=== PATIENT | female | born 1950 | race Hispanic/Latino ===

== ENCOUNTER 2017-05-20 13:10 | Day surgery (SDC) | payer MEDICARE, MEDICAID ==
[2017-05-13 08:22] VITALS: BMI 38.1
--- NOTE | 2017-05-20 14:42 | CP.PCM.PN ---
Subjective - Date & Time of Evaluation Date of Evaluation: 05/20/17 Time of Evaluation: 14:39 - Subjective Subjective: Pre-op note: Dr. Cruz 66 year old female patient with PMHx of DM, CHF, HTN, CAD s/p stent placement was seen and evaluated in [facility] prior to right foot surgery. Patient reports that she has a bone infection on the right foot and will be getting the bone cut today. Patient is AAOx3 and is in NAD. Patient reports that she has been NPO since midnight yesterday. Denies of having any adverse reactions to anesthesia. Denies of having any recent F/N/V/C/SOB/CP/headache/diarrhea or dizziness. Denies of any other pedal complains now. 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) SocialHx: Denies tobacco, alcohol, illicit drug use Allergies: N.K.D.A Objective - Vital Signs/Intake and Output Vital Signs (last 24 hours): Temp Pulse Resp BP Pulse Ox 97.7 F 68 20 107/47 L 98 05/20/17 13:54 05/20/17 13:54 05/20/17 13:54 05/20/17 13:54 05/20/17 13:54 - Constitutional Appears: Well, Non-toxic, No Acute Distress - Extremities Exam Additional comments: Dressing on the right foot is clean, dry and intact - Neurological Exam Neurological Exam: Alert, Awake, Oriented x3 - Psychiatric Exam Psychiatric exam: Normal Affect, Normal Mood Assessment and Plan - Assessment and Plan (Free Text) Assessment: 66 year old female patient with PMHx of DM, CHF, HTN, CAD s/p stent placement was evaluated in [facility] prior to right foot surgery. Plan: Pt was seen and examined in [facility] Pt NPO status was confirmed All pre-op testing and clearance in chart Pt has exhausted all conservative treatment at this time and is opting for surgical intervention Pt was explained procedure and post-operative course All pt's questions were answered to satisfaction No guarantees were made Pt understands all risks, benefits and complications of procedure Pt will follow-up with Dr. Cruz within 1 week of surgery
[2017-05-20] MEDS ORDERED: Bupivacaine 0.5% Inj(30mL) IJ ONE (14:50)
[2017-05-20] MEDS ORDERED: ceFAZolin 2 GM in Sodium Chloride 0.9% 100 ML IVPB ONE (14:50)
[2017-05-20] MEDS ORDERED: Lidocaine 1% Inj (20ml) IJ ONE ×2 (14:50→16:50)
--- NOTE | 2017-05-20 14:50 | CP.SDSHP ---
Same Day Surgery H & P - History Proposed Procedure: Right foot partial 5th ray amputation Pre-Op Diagnosis: OM of the right 5th ray - Allergies Allergies: Allergies No Known Allergies Allergy (Verified 12/27/16 15:02) - Physical Exam Vital Signs: Vital Signs 05/20/17 13:54 Temperature 97.7 F Pulse Rate 68 Respiratory 20 Rate Blood Pressure 107/47 L O2 Sat by Pulse 98 Oximetry - {Optional Preform as Required} Integument: Other Ortho: Other - Date & Time Date: 05/20/17 Time: 14:50 Short Stay Discharge - Short Stay Discharge Admitting Diagnosis/Reason for Visit: E11.62/M86.171 Disposition: HOME/ ROUTINE Referrals: Arsen Best MD [Primary Care Provider] - Additional Instructions (Diet, Activity): -Patient in good/stable condition for discharge home -Pt to resume medications per medical reconciliation -Resume regular diet Please keep dressing clean, dry, & intact to surgical site -Use plastic bag over bandage for showering -Wear post op shoe at all times when ambulating -Call clinic if you see signs of infection (redness, swelling, malodor) -Please make an appointment to see Dr. Cruz in office/clinic within 1 week for post-op check Progress Note/Discharge Note with Instructions: - Patient evaluated bedside in recovery s/p surgical procedure. - After surgical procedure patient in NAD - (+) Void, (+) Appetite - Capillary refill time <3s and NVSI intact. - Patient denies complaints at this time - Post operative instructions and plan of care explained to patient at length. - Pt. acknowledges understanding. - Patient stable for DC per podiatric surgery
[2017-05-20] MEDS ORDERED: Sodium Chloride 0.9% 1,000 ML IV SCH ×2 (15:00→17:45)
[2017-05-20] MEDS ORDERED: Bupivacaine 0.5% Inj(30mL) ONE (16:04)
[2017-05-20] MEDS ORDERED: Lidocaine 1% Inj (20ml) ONE (16:04)
[2017-05-20] MEDS ORDERED: Midazolam 2 MG/2 ML VIAL ONE (16:26)
[2017-05-20] MEDS ORDERED: Propofol 10 mg/ml Inj (20 ML) ONE (16:26)
[2017-05-20] MEDS ORDERED: Sodium Chloride 0.9% 1,000 ML IV ONE (16:30)
[2017-05-20] MEDS ORDERED: Bupivacaine HCl 0.5% PF (10 ml) Inj IJ ONE (16:50)
--- NOTE | 2017-05-20 17:32 | PCM.SURG1 ---
Surgeon's Initial Post Op Note - Surgeon's Notes Surgeon: Dr. Brenden Cruz DPM Paint Laboratory Technician: Dr. Milan De La Paz DPM PGY-1 Type of Anesthesia: IV Sedation, Local Anesthesia Administered By: Dr. 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 M: 3-0 vicryl, 3-0 prolene. I: 20 cc of 1: 1 1% lidocain plain : 0.5% marcain plain Post-Operative Diagnosis: Same Operation Performed: Right foot 5th metatarsal head resection with removal of all non-viable soft tissue Specimen/Specimens Removed: 5th metatarsal head Estimated Blood Loss: EBL {In ML}: 10 Blood Products Given: N/A Drains Used: No Drains Post-Op Condition: Good Date of Surgery/Procedure: 05/20/17 Time of Surgery/Procedure: 17:32
[2017-05-20] MEDS ORDERED: Oxycodone/Acetaminophen 5/325 mg Tab PO PRN ×2 (17:34)
[2017-05-20 17:53] VITALS: RESP 18
[2017-05-20 18:45] VITALS: TEMP 98
[2017-05-20 20:04] VITALS: BP 140/53; PULSE 71; O2SAT 98
--- NOTE | 2017-05-21 10:54 | RAD ---
PROCEDURE: Right Foot Radiographs. HISTORY: s/p right foot surgery COMPARISON: None. FINDINGS: BONES: Status post osteotomy distal 3rd 5th metatarsal. No acute fracture. No lytic or blastic osseous lesion. No periosteal reaction or osseous erosion. Plantar calcaneal spur noted. JOINTS: Normal. SOFT TISSUES: Normal. OTHER FINDINGS: None. IMPRESSION: Osteotomy distal 5th metatarsal. Otherwise unremarkable.
--- NOTE | 2017-05-21 11:43 | OP ---
PROCEDURE DATE: 05/20/2017 PREOPERATIVE DIAGNOSIS: Osteomyelitis of right fifth metatarsal head. POSTOPERATIVE DIAGNOSIS: Osteomyelitis of right fifth metatarsal head. NAME OF PROCEDURE: Resection of infected right fifth metatarsal head. SURGEON: Brenden Black DPM MACHINE II TRIMMER: Milan De La Paz DPM, PGY-1 ANESTHESIOLOGIST: Benitez Hightower MD TYPE OF ANESTHESIA: IV sedation with local. INDICATIONS: The patient is a 66-year-old female with the above diagnosis. The patient has exhausted all conservative treatment at this time and now requires surgical intervention. The patient signed the consent after careful explanation of risks, benefits, complications, and alternatives for surgical procedure. No guarantees were given nor implied. N.p.o. status was confirmed prior to taking the patient to the OR. PREPARATION: The patient was brought into the operating room and placed on the operating room table in a supine position. A time-out was performed for identification of the correct patient and procedure. After induction of IV sedation, the patient received a total of 20 mL of 1:1 mixture of 0.5% Marcaine plain, 1% lidocaine plain in a local block fashion to the lateral right foot just proximal to the fifth ray. The right lower extremity was then prepped and draped in a normal sterile manner and the procedure began. No tourniquet was used during the procedure. PROCEDURE 1: Attention was then turned to the lateral right digit where a longitudinal incision was made just lateral to the extensor digitorum longus attaching to the fifth digit. Dissection was made down to the level of bone with care taken to ensure that all major neurovascular tendons and ligamentous structures were kept intact. Once, dissection was made down to the level of bone, the periosteum was dissected off the bony surface using a freer elevator, thereby exposing the fifth metatarsophalangeal joint. A fresh # 15 blade was then used to dissect all soft tissue from the fifth metatarsophalangeal joint thereby completely freeing the fifth metatarsal head from the fifth proximal phalanx. A micro sagittal saw on power was then utilized to resect all exposed fifth metatarsal head. The fifth metatarsal head was then excised from the field using a towel clamp and fresh #15 blade. The metatarsal head was sent to pathology for examination. The cervical site was then flushed with copious amounts of normal sterile saline and a layered closure was performed using 3-0 Vicryl for deep sutures and 3-0 Prolene for superficial sutures. Attention was then turned to the plantar aspect of the right foot at the level of the first metatarsophalangeal joint where a nonhealing ulceration was noted with mostly granular wound base. The skin surrounding the nonhealing ulceration was hyperkeratotic in nature and a fresh #15 blade was used to the debride the hyperkeratotic tissue down to an appropriate level without incident. The foot was then cleansed with normal saline, dried and the wound was dressed with Xeroform, 4 x 4 gauze, Kerlix and Coban. POSTOPERATIVE CONDITION: The patient tolerated the anesthesia and procedure well and was escorted to the recovery room with vital signs stable and neurovascular status intact to right lower extremity. The patient is to remain weightbearing as tolerated to the right foot in a surgical shoe and is to keep the dressings clean, dry and intact at all times. The patient is to follow up with Dr. Black in his private office in 1 week's time to ensure that there are no signs of infection and the healing is occurring in appropriate and adequate manner. Milan De La Paz DPM Brenden Black DPM MTDSteve
== END 2017-05-20 20:15 | disposition home or self-care (01) ==
LOC: H.OPSURG 13:10
PROVIDERS: ATTEND Podiatrist Foot & Ankle Surgery
DX: E11.621 Type 2 diabetes mellitus with foot ulcer (principal); M86.171 Other acute osteomyelitis, right ankle and foot; I11.0 Hypertensive heart disease with heart failure; I25.10 Atherosclerotic heart disease of native coronary artery without angina pectoris; I50.9 Heart failure, unspecified
CPT/HCPCS: 28113; 73630; 82948; 88304; 97116; 97161; G8978; G8979; G8980; J0690; J2001; J2250; J2704; J3010; J7040

== ENCOUNTER 2018-06-19 15:34 | Emergency (ER) | payer OTHER ==
[2018-06-19 15:40] VITALS: O2SAT 98
[2018-06-19 15:41] VITALS: BMI 38.5
--- NOTE | 2018-06-19 16:30 | ED PDOC ---
Lower Extremity Pain/Injury Time Seen by Provider: 06/19/18 15:54 Chief Complaint (Nursing): Lower Extremity Problem/Injury Chief Complaint (Provider): Right foot pain History Per: Patient History/Exam Limitations: no limitations Current Symptoms Are (Timing): Still Present Additional Complaint(s): 67 year old female presents to the ED with right foot pain. Patient currently has an infection of her right foot's 1st and 3rd digits and was admitted to the hospital for this earlier this week. She was discharged on June 15. Patient was seen by her doctor today who told her she needed to go to the ER for further evaluation for possible persistent infection. Patient states she has been taking her antibiotics as prescribed. She also reports generalized weakness and pain her foot since discharge. Denies fever, any foot injury, or trauma. PMD: Dr. Lisette Post Past Medical History Reviewed: Historical Data, Nursing Documentation, Vital Signs Vital Signs: Last Vital Signs Temp 97.6 F 06/19/18 15:38 Pulse 66 06/19/18 15:38 Resp 20 06/19/18 15:38 BP 125/52 L 06/19/18 15:38 Pulse Ox 98 06/19/18 15:38 - Medical History PMH: Anemia, CAD, CHF, Diabetes, HTN, Hypercholesterolemia Denies: Chronic Kidney Disease - Surgical History Surgical History: Coronary Stent (2017) - Family History Family History: States: No Known Family Hx - Social History Current smoker - smoking cessation education provided: No Alcohol: None Drugs: Denies - Immunization History Hx Tetanus Toxoid Vaccination: No Hx Influenza Vaccination: No Hx Pneumococcal Vaccination: No - Home Medications Home Medications: Ambulatory Orders Medication Instructions Recorded Furosemide [Lasix] 20 mg PO DAILY 09/27/14 Insulin Glargine,Hum.rec.anlog 25 unit [facility] 09/27/14 [Lantus] Metformin HCl 1,000 mg PO BID 09/27/14 Aspirin [Aspirin Chewable] 81 mg PO DAILY #30 ctb 06/11/16 Clopidogrel [Plavix] 75 mg PO DAILY #30 tab 06/11/16 Amoxicillin/Clavulanate [Augmentin 1 tab PO BID #14 tab 06/15/18 875 MG-125 MG] Losartan [Cozaar] 50 mg PO DAILY #30 tab 06/15/18 Metoprolol Succinate XL [Toprol XL] 50 mg PO DAILY #30 tab 06/15/18 Saccharomyces Boulardi [Florastor] 250 mg PO BID #14 cap 06/15/18 Atorvastatin [Lipitor] 40 mg PO HS 06/19/18 Cholecalciferol [Vitamin D 1000 IU] 1,000 unit PO DAILY 06/19/18 Multivitamin [Multi-Vitamin Daily] 1 tab PO DAILY 06/19/18 Omeprazole 20 mg PO DAILY 06/19/18 - Allergies Allergies/Adverse Reactions: Allergies Allergy/AdvReac Type Severity Reaction Status Date / Time No Known Allergies Allergy Verified 06/12/18 19:03 Review of Systems ROS Statement: Except As Marked, All Systems Reviewed And Found Negative (as per HPI otherwise negative) Constitutional: Positive for: Weakness (generalized). Negative for: Fever Musculoskeletal: Positive for: Foot Pain (right). Negative for: Other (Trauma or foot injury) Physical Exam - Reviewed Nursing Documentation Reviewed: Yes Vital Signs Reviewed: Yes - Physical Exam Appears: Positive for: No Acute Distress Head Exam: Positive for: ATRAUMATIC, NORMOCEPHALIC Skin: Positive for: Warm, Dry Eye Exam: Positive for: EOMI, PERRL Neck: Positive for: Painless ROM, Supple Cardiovascular/Chest: Positive for: Regular Rate, Rhythm. Negative for: Murmur Respiratory: Positive for: Normal Breath Sounds. Negative for: Respiratory Distress Gastrointestinal/Abdominal: Positive for: Soft. Negative for: Tenderness Back: Positive for: Normal Inspection. Negative for: Decreased ROM Extremity: Positive for: Tenderness (mild tenderness to palpation at 1st and 3rd digits of right foot), Swelling (Mild edema at the forefoot and subtle erythema of the forefoot), Other (Right foot: 1st digit - ulceration at the distal phalanx that is about 0.5cm in depth and 1cm in diamter with red base and yellow eschar. 3rd digit - ulceration that is 3/4 cm in diameter at the distal phalanx with red base and yellow eschar. ) Lymphatic: Negative for: Adenopathy Neurological/Psych: Positive for: Awake. Negative for: Motor/Sensory Deficits - Laboratory Results Result Diagrams: 06/19/18 16:49 06/19/18 16:49 - ECG O2 Sat by Pulse Oximetry: 98 (RA) Pulse Ox Interpretation: Normal Medical Decision Making Medical Decision Making: Initial Impression: infection of multiple toes in the right foot Initial Plan: --CMP --CRP stat --Lact acid stat --CBC --Erythrocyte stat --PTT --Prothrombin time --Chest X-ray --Blood culture --Right foot X-ray ------- Scribe Attestation: Documented by Sebastian León acting as a scribe for Marsha Juárez MD. Provider Scribe Attestation: All medical record entries made by the Scribe were at my direction and personally dictated by me. I have reviewed the chart and agree that the record accurately reflects my personal performance of the history, physical exam, medical decision making, and the department course for this patient. I have also personally directed, reviewed, and agree with the discharge instructions and dis position. Time: 165 PROCEDURE: Right Foot Radiographs. HISTORY: RIGHT 3rd and 5th toe infections COMPARISON: 05/20/2017 TECHNIQUE: 3 views obtained. FINDINGS: BONES: Status post osteotomy distal aspect 5th metatarsal. Status post amputation of 4th digit at the MTP articulation. No acute fracture. No osseous erosion or periosteal reaction. Plantar calcaneal spur noted. JOINTS: Normal. SOFT TISSUES: Vascular calcifications OTHER FINDINGS: None. IMPRESSION: Status post amputation 4th digit at MTP articulation. Osteotomy distal 5th metatarsal. No plain radiographic evidence of osteomyeliti PROCEDURE: CHEST RADIOGRAPH, 1 VIEW HISTORY: infection COMPARISON: 05/13/2017 FINDINGS: LUNGS: Evaluation limited by oblique positioning. No infiltrate. PLEURA: No pneumothorax or pleural fluid seen. CARDIOVASCULAR: No aortic atherosclerotic calcification present. Normal. OSSEOUS STRUCTURES: No significant abnormalities. VISUALIZED UPPER ABDOMEN: Normal. OTHER FINDINGS: None. IMPRESSION: No active disease. Time: 2029 -- Podiatry resident evaluated patient in the ER and discussed the case with Dr. Bajwa who states patient can be discharged home with instructions to continue antibiotics as prescribed and attend follow up appointment with Dr. Bajwa as scheduled next Friday. Discussed with patient plan of care and is eager to be discharged. Scribe Attestation: Documented by Kylee Goode, acting as a scribe for Marsha Juárez MD. Provider Scribe Attestation: All medical record entries made by the Scribe were at my direction and personally dictated by me. I have reviewed the chart and agree that the record accurately reflects my personal performance of the history, physical exam, medical decision making, and the department course for this patient. I have also personally directed, reviewed, and agree with the discharge instructions and disposition. Disposition - Clinical Impression Clinical Impression: Open toe wound - Disposition Referrals: Brenden Bajwa DPM [Staff Provider] - (FOLLOWUP SCHEDULE WITH DR BAJWA) Disposition: Routine/Home Disposition Time: 20:00 Condition: STABLE Additional Instructions: CONTINUE YOUR MEDICATIONS PRESCRIBED. MAKE SURE YOU COMPLETE YOUR FULL COURSE OF ANTIBIOTICS. Instructions: Diabetic Foot Ulcer (DC)
[2018-06-19 16:54] LABS: BASO % 0.7 % (0.0-2.0); EOS # 0.1 K/uL (0.0-0.7); EOS % 1.1 % (0.0-4.0); HEMOGLOBIN 11.6 g/dL (12.0-16.0); LYMPH # 1.6 K/uL (1.0-4.3); MEAN CELL VOLUME 80.1 fl (81.0-99.0); MEAN CORPUSCULAR HEMOGLOBIN 26.2 pg (27.0-31.0); MEAN CORPUSCULAR HGB CONC 32.8 g/dL (33.0-37.0); MEAN PLATELET VOLUME 8.4 fl (7.2-11.7); MONO # 0.6 K/uL (0.0-0.8); MONO % 9.3 % (0.0-10.0); NEUT # 4.6 K/uL (1.8-7.0); NEUT % 65.9 % (50.0-75.0); NRBC % 0.1 % (0.0-0.0); RBC 4.41 Mil/uL (3.80-5.20); RED CELL DISTRIBUTION WIDTH 14.1 % (11.5-14.5); WHITE BLOOD COUNT 6.9 K/uL (4.8-10.8)
--- NOTE | 2018-06-19 16:57 | CP.PCM.CON ---
History of Present Illness - History of Present Illness History of Present Illness: Podiatry Consult Note: Dr. John 67 y/o female with PMHx of CAD, CHF, DM, HTN, HLD seen and evaluated for right hallux and 3rd digit ulceration. Patient is well known to Dr. John and follows with him weekly in his office for wound care. She states that she went to her primary care doctor who saw her ulceration and sent her to the hospital. She denies nausea/vomiting/fever/shortness of breath/chest pain. PMHx: HTN, DM2, HLD, CAD s/p stents x3 PSHx: cardiac stent x3 placement 2014, amputation of L 4th digit 2014, amputatio n of R 4th digit 2017 SHx: Denies tobacco use All: NKDA Review of Systems - Constitutional Constitutional: As Per HPI Past Patient History - Infectious Disease Hx of Infectious Diseases: None - Past Medical History & Family History Past Medical History?: Yes - Past Social History Alcohol: None Drugs: Denies - CARDIAC Hx Congestive Heart Failure: Yes Hx Hypercholesterolemia: Yes Hx Hypertension: Yes - PULMONARY Hx Respiratory Disorders: No - NEUROLOGICAL Hx Neurological Disorder: No - HEENT Hx HEENT Problems: Yes Hx Cataracts: Yes (fabian) Hx Glaucoma: Yes - RENAL Hx Chronic Kidney Disease: No - ENDOCRINE/METABOLIC Hx Diabetes Mellitus Type 2: Yes - HEMATOLOGICAL/ONCOLOGICAL Hx Anemia: Yes - INTEGUMENTARY Hx Dermatological Problems: Yes Other/Comment: left 4TH toe amputation - MUSCULOSKELETAL/RHEUMATOLOGICAL Hx Musculoskeletal Disorders: No Hx Falls: No - GASTROINTESTINAL Hx Gastrointestinal Disorders: No - GENITOURINARY/GYNECOLOGICAL Hx Genitourinary Disorders: No - PSYCHIATRIC Hx Emotional Abuse: No Hx Physical Abuse: No Hx Substance Use: No - SURGICAL HISTORY Hx Coronary Stent: Yes (2017) - ANESTHESIA Hx Anesthesia: Yes Hx Anesthesia Reactions: No Hx Malignant Hyperthermia: No Meds Allergies/Adverse Reactions: Allergies Allergy/AdvReac Type Severity Reaction Status Date / Time No Known Allergies Allergy Verified 06/12/18 19:03 Physical Exam - Constitutional Appears: Non-toxic, No Acute Distress - Head Exam Head Exam: ATRAUMATIC, NORMOCEPHALIC - Extremities Exam Additional comments: R Lower extremity exam: Vasc: DP/PT pulses palpable 1/4. Temperature gradient warm to cool. CFT < 3 sec to all remaining digits. Localized digital edema noted to right 3th digit and hallux Derm: Pre-ulcerative lesion, stage I, to right 3rd toe distal tip approx 1cm x 0.9cm x 0.1cm with hyperkeratotic wound border noted. No active drainage or purulence appreciated. Erythematous changes appreciated to 3rd digit circumferentially. Ulcerative lesion to right plantar hallux with hyperkeratotic border, stage 2, no drainage, no purulence. Neuro: Gross sensation diminished, protective sensation absent Ortho: Prior left foot 4th digit amputation and right foot 4th digit amputation. No pain with calf compression - Neurological Exam Neurological exam: Alert, Oriented x3 - Psychiatric Exam Psychiatric exam: Normal Affect, Normal Mood Results - Vital Signs Recent Vital Signs: Last Vital Signs Temp 97.6 F 06/19/18 15:38 Pulse 66 06/19/18 15:38 Resp 20 06/19/18 15:38 BP 125/52 L 06/19/18 15:38 Pulse Ox 98 06/19/18 16:41 - Labs Result Diagrams: 06/19/18 16:49 06/19/18 16:49 Labs: Laboratory Results - last 24 hr 06/19/18 16:49 WBC 6.9 RBC 4.41 Hgb 11.6 L Hct 35.3 MCV 80.1 L D MCH 26.2 L MCHC 32.8 L RDW 14.1 Plt Count 258 MPV 8.4 Neut % (Auto) 65.9 Lymph % (Auto) 23.0 Lynn % (Auto) 9.3 Eos % (Auto) 1.1 Baso % (Auto) 0.7 Neut # (Auto) 4.6 Lymph # (Auto) 1.6 Lynn # (Auto) 0.6 Eos # (Auto) 0.1 Baso # (Auto) 0.0 Assessment & Plan - Assessment and Plan (Free Text) Assessment: 67 y/o female with PMHx of CAD, CHF, DM, HTN, HLD seen and evaluated for right hallux and 3rd digit ulceration. Plan: Patient seen and evaluated Discussed with attending Dr. John Afebrile, WBC 6.9 R foot x-ray; taken, r/o OM C/w abx R wound culture taken from hallux Local wound care: xeroform, DSD Patient to follow up with Dr. John next week in office at existing appointment Patient stable for d/c per podiatry standpoint and f/u as outpatient Thank you for the consult - Date & Time Date: 06/19/18 Time: 16:56
[2018-06-19 17:01] LABS: PROTHROMBIN TIME 11.2 Seconds (9.8-13.1)
[2018-06-19 17:04] LABS: PARTIAL THROMBOPLASTIN TIME 33.3 Seconds (25.6-37.1)
[2018-06-19 17:05] LABS: ALB/GLOB RATIO 1.2 (1.0-2.1); ALT/SGPT 38 U/L (9-52); AST/SGOT 42 U/L (14-36); BLOOD UREA NITROGEN 19 mg/dl (7-17); CALCIUM 9.3 mg/dL (8.4-10.2); GFR NON-AFRICAN AMERICAN > 60
--- NOTE | 2018-06-19 17:36 | RAD ---
Date of service: 06/19/2018 06/19/2018 PROCEDURE: Right Foot Radiographs. HISTORY: RIGHT 3rd and 5th toe infections COMPARISON: 05/20/2017 TECHNIQUE: 3 views obtained. FINDINGS: BONES: Status post osteotomy distal aspect 5th metatarsal. Status post amputation of 4th digit at the MTP articulation. No acute fracture. No osseous erosion or periosteal reaction. Plantar calcaneal spur noted. JOINTS: Normal. SOFT TISSUES: Vascular calcifications OTHER FINDINGS: None. IMPRESSION: Status post amputation 4th digit at MTP articulation. Osteotomy distal 5th metatarsal. No plain radiographic evidence of osteomyelitis.
--- NOTE | 2018-06-19 17:36 | RAD ---
Date of service: 06/19/2018 PROCEDURE: CHEST RADIOGRAPH, 1 VIEW HISTORY: infection COMPARISON: 05/13/2017 FINDINGS: LUNGS: Evaluation limited by oblique positioning. No infiltrate. PLEURA: No pneumothorax or pleural fluid seen. CARDIOVASCULAR: No aortic atherosclerotic calcification present. Normal. OSSEOUS STRUCTURES: No significant abnormalities. VISUALIZED UPPER ABDOMEN: Normal. OTHER FINDINGS: None. IMPRESSION: No active disease.
[2018-06-20 02:10] VITALS: BP 131/76; PULSE 71; RESP 19; TEMP 97.9
== END 2018-06-19 18:40 | disposition home or self-care (01) ==
LOC: H.ER 15:34
DX: L97.519 Non-pressure chronic ulcer of other part of right foot with unspecified severity (principal); I11.0 Hypertensive heart disease with heart failure; I25.10 Atherosclerotic heart disease of native coronary artery without angina pectoris; Z79.4 Long term (current) use of insulin; Z95.5 Presence of coronary angioplasty implant and graft; E11.9 Type 2 diabetes mellitus without complications; D64.9 Anemia, unspecified; E78.00 Pure hypercholesterolemia, unspecified